=== PATIENT | female | born 1985 | race Caucasian/White ===

== ENCOUNTER 2024-03-26 09:52 | Outpatient (RCR) | payer OTHER, SELFPAY ==
--- NOTE | 2024-03-26 13:32 | OT.OPPOC ---
Physical, Occupational & Speech Therapy At [facility] Bobbi Hooks [id number] 1985 Visit Care Team Role Provider Type Pratibha Monroe DO Attending Provider Non-Staff Referring Provider Address: [address] [place] [address], [id number] Occupational Therapy Plan of Care OT Outpatient Adult Evaluation Start: 03/26/24 11:00 Freq: Status: Active Protocol: Document 03/26/24 11:01 JOSÉCOMITESH (Rec: 03/26/24 13:29 [facility] [id number]) General Information - Adult Visit Information Visit Number [id number] Plan of Care Dates 03/26/24 Insurance Information Prime; 12 visits approved; no e-stim Session Time Visit Start Date 03/26/24 Visit Start Time 10:05 Visit Stop Time 10:55 Setting Treatment Setting Outpatient Care Visit Type Note Type Initial Evaluation Referral Referring Physician Pratibha Monroe Reason for Referral TFCC injury, L wrist edema, pain weakness, limited ROM Identification Identification Confirmed Yes Identification Confirmed By patient Patient Patient Goals Pt would like to use her L hand without sharp limiting pain Goals Short Term Goals Short Term Goals 1. Pt will demonstrate increased AROM for L wrist flexion to 65 degrees for improved IADLs/ADLs. 2. Pt will demonstrate increased AROM for L wrist extension to 60 degrees for improved IADLS/ADLs. 3. Pt will demonstrate improved functional cage maker of at least 25# on L. 4. Pt will self-report improved functional use of L UE, using QuickDash, with a score 25 or better 5. Pt will tolerate MMT of L wrist. 6. Pt will increse tip and 3 pt pinch strengths by 5# each for improved object manipulation. 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 Pt will demonstrate L wrist strength to within 1/2 muscle grade of contralateral side for improved safety with lifting tasks. 2. Pt will report being able normally fasten her seat belt without increased pain. 3. Pt will demonstrate improved functional cage maker of at least 40# on L. 4. Pt will self-report improved functional use of L UE, using QuickDash, with a score 10 or better. 5. Pt will report demonstrate I with HEP. Assessment/Plan Assessment Rehabilitation Potential Excellent Impairments Identified ADLs,Body Mechanics,Functional Activities,Pain,Weakness, Range of Motion,Work Capacity Treatment Assessment Bobbi is 39 yo who had a TFCC injury on 03/08 resulting in L non-dominant wrist edema, pain weakness, limited ROM. Bobbi reports that she was lifting her 46.8# suitcase over the lip of the escalator with her L UE when she had a rubber band snap sensation with instant pain and pins and needles sensation. Approximately 30 minutes later she noted swelling and redness at her wrist. Bobbi is awaiting a MRI referral. Pmhx: psoriatic arthritis, fibromyalgia, headaches, jaw pain, neck pain . Pt had cortisone injection to left 5th digit ~1 year ago due to trigger finger. Whole Body Pain Assessment grid pt reports 4/10 pain left lateral wrist. QuickDASH Outcome Measure 36 and QuickDash Work Module 50. 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 Pt has been able to continue her job while wearing wrist splint. Pt has two children, ages 8 and 13 yo. Pt has an 80# dog. Pt is responsible for filling the dogs water bowl. Bobbi reports pain and modification with this task and has had incidents of dropping the water bowl. She reports pain when performing resisted cage maker/reach tasks, pain is sudden and sharp at the medial wrist. Pt reports that she has modified how she dresses. 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 MMT L elbow flex 4+, L elbow extension 4-, R elbow flex/ext 5, R wrist flex/ext 4+ (L wrist not tested at this time due reports of significant pain with resited activites). AROM L wrist flexion 55, extension 50, radial deviation 15, ulnar deviation 28. PROM L wrist flex 65, L wrist ext 60. Medical Oncology Physician strength R 65# L 11#; lateral pinch R 16# L 10#; tip pinch R 16#, L 5# (with 4/ 10 c/o pain); 3 point R 16#, L 7#. Bobbi presents with increased pain, decreased ROM, decreased strength, and decreased functional use of her non-dominant L wrist due to an injury she sustained on 03/08. Bobbi notable guards her L wrist/hand during evaluation. OT cautioned against limiting the ROM of her unaffected digits and encouraged pt to use L UE normally in pain free activities while wearing her splint. OT educated pt on tendon gliding and ice massage . Skilled OT services are appropriate to address pt?s pain, ROM, muscle weakness, activity intolerance, ADL/IADL retraining, and activity modification to promote return to PLOF. Home Exercise Program Pt gave verbal consent to receive [employer] HEP via email to include tendon glides and ice massage. Reviewed with Patient Home Exercise Program Patient Understanding Excellent Plan Length of treatment (weeks) 8 Plan of Care Start Date 03/26/24 Plan of Care End Date 05/21/24 Comment 1-2x/wk Treatment Duration 45 Minutes Therapeutic Contents Active Range of Motion, Functional Activities,Home Exercise Program,Joint Protection,Manual Therapy, Education,Stretching/ Flexibility Activities, Therapeutic Activities, Therapeutic Exercises Additional Areas of Treatment MHP/CP/Contrast Patient Instruction Home Exercise Program Functional Wrist/Hand Scan Hand Side Sensory Assessment Sensory Profile2 Electronically Signed by: Deena Sawyer OT 03/26/24 [id number] If you are in agreement with this Plan of Care, please return a signed and dated copy. I have reviewed this Plan of Care and certify that the skilled therapy services above are required to meet the patient?s needs. Physician Signature Date Printed Name and Credentials Clinical Instructor Signature Printed Name and Credentials
--- NOTE | 2024-05-07 13:45 | OT.OP.DC ---
Visit Care Team Role Provider Type Pratibha Monroe DO Attending Provider Non-Staff Primary Care Provider Referring Provider Address: [address] [place] [address], [place], [address] Email: OT Outpatient Pt evaluated on 03/26/24 for TFCC injury L wrist, L wrist edema, pain, weakness, and limited ROM. Following eval, pt had MRI scheduled. Pt cancelled her appointments following MRI due to seeking guidance of orthopedic. Pt has cancelled all scheduled appointments following her MD appointment without giving reason. OT has called pt several times and left a message requesting the patient call back to discuss her plan. Pt has not called back. D/C pt per non-compliance with appointment policy at this time.
== END 2024-05-08 10:53 | disposition home or self-care (01) ==
LOC: OT 09:52
PROVIDERS: PCP Family Medicine; Referring Provider Family Medicine; Visit Provider Family Medicine
DX: M25.532 Pain in left wrist (principal); X50.0XXA Overexertion from strenuous movement or load, initial encounter
CPT/HCPCS: 97165

== ENCOUNTER → 2024-03-27 16:52 | Outpatient (CLI) | payer OTHER, SELFPAY ==
--- NOTE | 2024-03-27 16:53 | DI.MRI.S_ITS ---
PROCEDURE: MR CERVICAL SPINE WO CON INDICATIONS: CERVICOGENIC HEADACHE/PAIN IN LEFT WRIST TECHNIQUE: Noncontrast sagittal T1 spin echo and T2 fast spin echo, sagittal STIR, foraminal oblique sagittal T2 fast spin echo, and axial gradient echo or T2 fast spin echo through the cervical spine. COMPARISON: None. FINDINGS: Image quality: Excellent. Alignment and Curvature: There is normal bony alignment. Bone Marrow: Marrow demonstrates normal overall signal. Spinal Cord: Visualized spinal cord has normal size and signal. No cerebellar tonsillar herniation. Paraspinous Soft Tissues: No paravertebral masses. Prevertebral soft tissues are normal in thickness. C2-C3: Normal appearance. C3-C4: Normal appearance. C4-C5: Normal appearance. C5-C6: Disc space narrowing posterior disc osteophyte complex with mild central stenosis. Hypertrophic uncovertebral joint results in mild right and no left foraminal stenosis C6-C7: Disc height is maintained. Small posterior disc osteophyte complex without central stenosis. Hypertrophic uncovertebral joints results in mild left but no right foraminal stenosis C7-T1: Normal appearance. IMPRESSION: Mild degenerative disc disease and arthropathy without significant central or foraminal stenosis throughout the exam Approved by: Luis Ceja M.D. on 03/28/2024 at 12:51
--- NOTE | 2024-03-27 16:53 | DI.MRI.S_ITS ---
PROCEDURE: MR WRIST LT WO CON INDICATIONS: CERVICOGENIC HEADACHE/PAIN IN LEFT WRIST TECHNIQUE: Noncontrast coronal proton density fast spin echo and T2 fast spin echo with fat saturation; coronal 3-D gradient echo, axial T1 spin echo and T2 fast spin echo with fat saturation, sagittal T1 spin echo through the wrist. COMPARISON: None. FINDINGS: Image quality: Excellent. Bones and cartilage: The carpal bones are normally aligned. No bone marrow contusions or fractures. No evidence for avascular necrosis. Chronic cystic changes are seen in the capitate and trapezoid as well as the triquetrum. Minimal degenerative spurring is seen at the 1st metacarpal base. Carpal ligaments: The scapholunate and lunotriquetral ligaments appear intact. On sagittal images, the pisohamate ligament appears intact. Triangular fibrocartilage complex: There is suspected partial tearing at the ulnar styloid and foveal attachments of the triangular fibrocartilage. Additionally, focal perforation of the triangular fibrocartilage disc is seen near the radial attachment. Trace fluid in the distal radioulnar joint. Tendons and soft tissues: The median nerve appears thickened with increased T2-weighted signal is seen is the carpal tunnel. There is mild volar bowing of the flexor retinaculum. Flexor tendons are intact. The ulnar nerve appears normal within Guyon's canal. There is mild tendinosis and tenosynovitis of the extensor carpi ulnaris tendon. The remaining extensor tendon compartments demonstrate normal morphology, without pathologic tendon sheath fluid. Elongated thin lobular ganglion cyst is seen at the volar radial aspect of the radiocarpal joint extending proximal and ulnar towards the distal radioulnar joint and measuring up to 27 x 7 x 4 mm. Small ganglion cyst along the volar aspect of the 2nd carpometacarpal joint measuring 4 x 3 x 4 mm. IMPRESSION: 1. Focal full-thickness perforation of the triangular fibrocartilage disc near the radial attachment. Suspected at least partial tearing of the ulnar attachments of the triangular fibrocartilage. 2. Mild extensor carpi ulnaris tendinosis and tenosynovitis. 3. Thickening and increased signal in the median nerve can be seen in the setting of median neuritis/carpal tunnel syndrome. There is volar bowing of the flexor retinaculum. 4. Thin lobular ganglion cyst at the volar radial aspect of the wrist measures up to 27 mm in length and extends proximally. Additional 4 mm ganglion cyst volar to the 2nd carpometacarpal joint. Approved by: Valnetino Wilson M.D. on 03/28/2024 at 9:05
== END ==
PROVIDERS: PCP Family Medicine; Referring Provider Family Medicine; Visit Provider Family Medicine
DX: G44.86 Cervicogenic headache (principal); M47.22 Other spondylosis with radiculopathy, cervical region; M50.122 Cervical disc disorder at C5-C6 level with radiculopathy; M65.832 Other synovitis and tenosynovitis, left forearm; M67.432 Ganglion, left wrist; M25.532 Pain in left wrist
CPT/HCPCS: 72141; 73221